=== PATIENT | female | born 1935 | race Two or more races ===

== ENCOUNTER 2016-07-13 19:05 | Emergency (ER) | payer MEDICARE, OTHER ==
[~2016-07-13] VITALS: Ht 152.4 cm; Wt 49.5 kg
[~2016-07-13 19:05] MED LIST: ATOR20TA86 PO
[2016-07-13] MEDS ORDERED: ALEN70SO3 PO (19:18)
[2016-07-13] MEDS ORDERED: LOSA25TA21 PO (19:18)
[2016-07-13 19:54] LABS: BASOPHILS # (AUTO) 0.04 K/uL (0.00-0.20); BASOPHILS % (AUTO) 0.9 % (0.0-2.0); EOSINOPHILS % (AUTO) 2.38 % (1.0-6.0); HEMATOCRIT 36.3 % (36-46); HEMOGLOBIN 12.5 g/dL (12.0-16.0); LYMPHOCYTES % (AUTO) 23.9 % (22.0-44.0); MEAN CORPUSCULAR HEMOGLOBIN 30.4 pg (26.0-34.0); MEAN CORPUSCULAR HGB CONC 34.4 G/dL (31.0-37.0); MEAN CORPUSCULAR VOLUME 89 fL (80-100); MONOCYTES # (AUTO) 0.4 K/uL (0.1-1.0); MONOCYTES % (AUTO) 9.4 % (2.0-9.0); NEUTROPHILS # (AUTO) 2.7 K/uL (1.8-7.7); NEUTROPHILS % (AUTO) 63.5 % (40.0-70.0); PLATELET COUNT (AUTO) 172 K/uL (150-450); RED CELL DISTRIBUTION WIDTH 14.1 % (11.5-14.5); WHITE BLOOD COUNT (AUTO) 4.3 K/uL (4.5-11.0)
[2016-07-13 20:07] LABS: ANION GAP 9 mmol/L (8-16); CALCIUM, TOTAL 8.8 mg/dL (8.8-10.5); CARBON DIOXIDE 26 mmol/L (22-29); CHLORIDE 102 mmol/L (98-107); GLOMERULAR FILTR. RATE CALC > 60 mL/min (>60); POTASSIUM 3.7 mmol/L (3.5-5.1); SODIUM SERUM 137 mmol/L (136-145); UREA NITROGEN, BLOOD 11 mg/dL (7-18)
[2016-07-13 20:09] LABS: PROTHROMBIN TIME 10.9 SEC (9.4-11.6)
[2016-07-13 20:11] LABS: ALANINE AMINOTRANSFERASE 23 U/L (12-78); ALBUMIN 3.8 g/dL (3.4-5.0); ASPARTATE AMINOTRANSFERASE 25 U/L (15-37); BILIRUBIN,TOTAL 0.5 mg/dL (0.1-1.0); CREATINE KINASE, TOTAL 69 U/L (26-192); TOTAL PROTEIN, SERUM 6.9 g/dL (6.4-8.2)
[2016-07-13] MEDS ORDERED: ALEN70TA48 PO (20:28)
[2016-07-13] MEDS ORDERED: MECLIZINE HCL 25 MG TABLET PO ONE (20:30)
[2016-07-13] MEDS ORDERED: SODIUM CHLORIDE 0.9% 1,000 ML IV ONE (20:30)
[2016-07-13 20:32] LABS: B-TYPE NATRIURETIC PEPTIDE 21 pg/mL (0-100)
[2016-07-13 22:23] LABS: APPEARANCE,URINE CLEAR (CLEAR); GLUCOSE, URINE (UA) NEGATIVE (NEGATIVE); KETONES,URINE NEGATIVE (NEGATIVE); LEUKOCYTE ESTERASE ,URINE NEGATIVE (NEGATIVE); OCCULT BLOOD,URINE NEGATIVE (NEGATIVE); PH,URINE 7.5 (5.0-8.0); PROTEIN,URINE NEGATIVE (NEGATIVE)
[2016-07-13 22:37] LABS: ADD UA MICROSCOPIC NO
[2016-07-13 22:54] VITALS: BP 129/74
== END 2016-07-13 22:55 | disposition home or self-care (01) ==
LOC: EMS 19:06
DX: R42 Dizziness and giddiness (principal); E86.0 Dehydration; E78.00 Pure hypercholesterolemia, unspecified
CPT/HCPCS: 36415; 71010; 80053; 81003; 82550; 83880; 84484; 85025; 85610; 85730; 93005; 96360; 99285; J7030

== ENCOUNTER 2017-01-13 00:42 | Emergency (ER) | payer MEDICARE, OTHER ==
[~2017-01-13] VITALS: Ht 157.5 cm; Wt 50.0 kg
[~2017-01-13 00:42] MED LIST changes: +ALEN70TA48 PO; +LOSA25TA21 PO
[2017-01-13 00:48] VITALS: BP 135/71
== END 2017-01-13 02:42 | disposition left against medical advice (07) ==
LOC: EMS 00:44
DX: R51 Headache (principal); E78.00 Pure hypercholesterolemia, unspecified; W19.XXXA Unspecified fall, initial encounter; Y93.89 Activity, other specified; Y92.89 Other specified places as the place of occurrence of the external cause; Y99.8 Other external cause status; Z53.21 Procedure and treatment not carried out due to patient leaving prior to being seen by health care provider